=== PATIENT | female | born 1995 | race African-American/Black ===

== ENCOUNTER 2018-01-21 16:11 | Emergency (ER) | payer OTHER, SELFPAY | END 2018-01-21 17:00 | disposition home or self-care (01) | LOC: ERS 16:11 | DX: K04.7 Periapical abscess without sinus (principal) | CPT/HCPCS: 99282 ==

== ENCOUNTER 2018-02-16 07:50 | Emergency (ER) | payer OTHER, SELFPAY | END 2018-02-16 08:54 | disposition home or self-care (01) | LOC: ERS 07:50 | DX: J06.9 Acute upper respiratory infection, unspecified (principal) | CPT/HCPCS: 87081; 87430; 99283 ==

== ENCOUNTER 2018-05-16 12:20 | Emergency (ER) | payer OTHER ==
[2018-05-16] MEDS ORDERED: Acetaminophen 325 MG TAB ONE (13:07)
== END 2018-05-16 16:25 | disposition home or self-care (01) ==
LOC: ERS 12:20
DX: O99.511 Diseases of the respiratory system complicating pregnancy, first trimester (principal); J06.9 Acute upper respiratory infection, unspecified; Z3A.01 Less than 8 weeks gestation of pregnancy
CPT/HCPCS: 87804; 99283

== ENCOUNTER 2018-06-10 13:30 | Emergency (ER) | payer OTHER | END 2018-06-10 13:49 | disposition home or self-care (01) | LOC: ERS 13:30 | DX: O99.511 Diseases of the respiratory system complicating pregnancy, first trimester (principal); J06.9 Acute upper respiratory infection, unspecified; Z3A.09 9 weeks gestation of pregnancy | CPT/HCPCS: 99283 ==

== ENCOUNTER 2018-07-11 12:22 | Emergency (ER) | payer OTHER | END 2018-07-11 13:36 | disposition home or self-care (01) | LOC: ERS 12:22 | DX: J06.9 Acute upper respiratory infection, unspecified (principal) | CPT/HCPCS: 87804; 99283 ==